=== PATIENT | female | born 2005 | race Caucasian/White ===

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

== ENCOUNTER 2025-01-09 12:26 | Emergency (ER) | payer OTHER ==
[~2025-01-09] VITALS: Ht 175.2 cm; Wt 117.9 kg
[~2025-01-09 12:26] MED LIST changes: +ARIPIPRAZOLE15 MG PO; +BENZONATATE100 M1 PO; +PROPRANOLOL HCL10 MG PO
[2025-01-09] MEDS ORDERED: diphenhydrAMINE hydrochloride 25 MG CAP PO ONE (12:50)
[2025-01-09] MEDS ORDERED: diphenhydrAMINE hydrochloride 50 MG/ML VIAL IV ONE (13:05)
[2025-01-09] MEDS ORDERED: FAMOTIDINE 50 ML IV ONE (13:05)
[2025-01-09] MEDS ORDERED: SODIUM CHLORIDE 0.9% 1,000 ML IV ONE (13:05)
[2025-01-09] MEDS ORDERED: Ondansetron Hydrochloride 4 MG/2 ML VIAL IV ONE (13:05)
[2025-01-09] MEDS ORDERED: methylPREDNISolone sod succ 125 MG VIAL IV ONE (13:20)
[2025-01-09 14:50] LABS: BILIRUBIN Negative (Negative); BLOOD Negative (Negative); CLARITY Cloudy (Clear); COLOR Yellow (Yellow); GLUCOSE Negative (Negative); KETONE Trace (Negative); LEUKO ESTERASE 1+ (Negative); NITRITE Negative (Negative); PH 6.5 (4.5-8.0); SPECIFIC GRAVITY 1.025 (1.001-1.030); UROBILINOGEN 0.2 E.U./dl (0.0-1.0)
[2025-01-09 14:57] LABS: BACTERIA 4+; EPITHELIAL CELLS TNTC; RBC 0-2 rbc/hpf (0-2)
[2025-01-09] MEDS ORDERED: MACROBID100 M1 PO (15:12)
[2025-01-09] MEDS ORDERED: Nitrofurantoin Monohydrate/N 100 MG CAP PO ONE (15:15)
== END 2025-01-09 15:33 | disposition home or self-care (01) ==
LOC: ED 12:26
PROVIDERS: Nurse Practitioner
DX: R42 Dizziness and giddiness (principal); T36.1X5A Adverse effect of cephalosporins and other beta-lactam antibiotics, initial encounter; N39.0 Urinary tract infection, site not specified; R07.89 Other chest pain; Z32.02 Encounter for pregnancy test, result negative; Z88.1 Allergy status to other antibiotic agents; Z79.899 Other long term (current) drug therapy; Y92.89 Other specified places as the place of occurrence of the external cause